=== PATIENT | female | born 1975 | race Caucasian/White ===

== ENCOUNTER 2022-10-29 07:13 | Day surgery (SDC) | payer MEDICAID ==
[~2022-10-29] VITALS: Ht 157.5 cm; Wt 80.9 kg
[~2022-10-29 07:13] MED LIST: SODIUM CHLORIDE 0.9% 1,000 ML IV ONE
[2022-10-29] MEDS ORDERED: LIDOCAINE/PF 2% 5 ML VIAL IM ONE (07:14)
[2022-10-29] MEDS ORDERED: PROPOFOL 1% 20 ML VIAL IVP ONE (07:14)
[2022-10-29 07:40] LABS: COVID AG,FIA SOURCE NASAL SWAB
[2022-10-29] MEDS ORDERED: SODIUM CHLORIDE 0.9% 1,000 ML ONE (08:05)
== END 2022-10-29 11:00 | disposition home or self-care (01) ==
LOC: SURGERY 07:13
PROVIDERS: ATTEND Internal Medicine Gastroenterology
DX: K63.5 Polyp of colon (principal); K64.0 First degree hemorrhoids; D64.9 Anemia, unspecified; Z98.890 Other specified postprocedural states; Z90.49 Acquired absence of other specified parts of digestive tract; Z91.013 Allergy to seafood; Z79.899 Other long term (current) drug therapy; Z20.822 Contact with and (suspected) exposure to COVID-19
CPT/HCPCS: 45380; 87426; 88305; 84703; C1769; J2704; J3490; J7030; C9803